=== PATIENT | female | born 1980 | race Caucasian/White ===

== ENCOUNTER 2022-12-12 21:15 | Inpatient (IN) | payer MEDICARE, MEDICAID ==
[~2022-12-12] VITALS: Ht 170.2 cm; Wt 129.0 kg
[2022-12-12] MEDS ORDERED: LIDOCAINE 1% MDV 20ML VIAL INFIL PRN (23:50)
[2022-12-12] MEDS ORDERED: OXYTOCIN DRIP 30 UNITS in IV 1 EA IV PRN (23:50)
[2022-12-13] VITALS (9 sets, daily range): BP systolic 110–139; BP diastolic 54–84; TEMP 97.5; O2SAT 98–100
[2022-12-13] MEDS: miSOPROStol 50MCG 1/2 TABLET SL SCH ×3 (00:15→08:00)
[2022-12-13 00:42] LABS: GLUCOSE,RANDOM 94 MG/DL (LESS THAN 200)
[2022-12-13 00:52] LABS: HEMATOCRIT 39.6 % (36.0-47.0); MEAN CORPUSCULAR HEMOGLOBIN 29.5 pg (27.0-33.0); MEAN CORPUSCULAR HGB CONC 32.8 g/dl (32.0-36.5); MEAN CORPUSCULAR VOLUME 89.8 fl (80.0-96.0); PLATELET COUNT, AUTOMATED 185 10^3/uL (150-450); RED BLOOD COUNT 4.41 10^6/uL (4.00-5.40); WHITE BLOOD COUNT 11.7 10^3/uL (4.0-10.0)
[2022-12-13] MEDS ORDERED: CARBOPROST TROMETHAMINE 250 MCG/ML AMP IM PRN (09:15)
[2022-12-13] MEDS ORDERED: LACTATED RINGER'S 1000 ML IV STA (09:15)
[2022-12-13] MEDS ORDERED: OXYTOCIN DRIP 30 UNITS in IV 1 EA IV PRN ×4 (09:15)
[2022-12-13] MEDS ORDERED: ceFAZolin SOD 3 GM IV Place Holder IV ONE (09:15)
[2022-12-13] MEDS ORDERED: TRANEXAMIC ACID INJection 1,000 MG in NS 100 ML IV PRN (09:15)
[2022-12-13] MEDS ORDERED: BICITRA 30ML SOLN UDC PO ONE (09:15)
[2022-12-13] MEDS ORDERED: METHYLERGONOVINE MALEATE 0.2MG/ML 1ML VIAL IM PRN ×2 (09:15→11:35)
[2022-12-13] MEDS ORDERED: OXYTOCIN INJ 10UNITS/ML 1ML VIAL IM PRN (09:15)
[2022-12-13] MEDS ORDERED: ONDANSETRON 4MG 2ML VIAL As Ordered ONE (09:20)
[2022-12-13] MEDS ORDERED: OXYTOCIN INJ 10UNITS/ML 1ML VIAL As Ordered ONE (09:20)
[2022-12-13] MEDS ORDERED: MORPHINE PRES-FREE INJ 10 MG/10 ML VIAL As Ordered ONE (09:20)
[2022-12-13] MEDS ORDERED: AZITHROMYCIN INJ 500 MG, VIAL MATE ADAPTER 1 EACH in NS 250 ML IV ONE (09:30)
[2022-12-13] MEDS ORDERED: PHENYLephrine 500MCG 5ML (100MCG/ML) SYRINGE As Ordered ONE ×2 (10:12→10:40)
[2022-12-13] MEDS ORDERED: METOCLOPRAMIDE INJ 10MG/2ML VIAL As Ordered ONE (10:18)
[2022-12-13] MEDS ORDERED: ceFAZolin SOD 2 GM in IV 1 EA IV ONE (10:30)
[2022-12-13] MEDS ORDERED: ceFAZolin SOD 1 GM in D5W MINI-BAG PLUS 50 ML IV ONE (10:30)
[2022-12-13] MEDS ORDERED: ePHEDrine SULFATE 25 MG/5 ML(5MG/ML) SYRINGE As Ordered ONE (10:40)
[2022-12-13] MEDS ORDERED: ACETAMINOPHEN 1000MG 100ML IV BAG As Ordered ONE (10:41)
[2022-12-13] MEDS ORDERED: SIMETHICONE 80MG CHEW TAB PO PRN (11:35)
[2022-12-13] MEDS ORDERED: ACETAMINOPHEN TAB 650MG DOSE (2X325MG) PO PRN (11:35)
[2022-12-13] MEDS ORDERED: MORPHINE 4 MG/ML 1ML VIAL IV PRN (11:35)
[2022-12-13] MEDS ORDERED: PERCOCET 5MG/325MG TAB PO PRN (11:35)
[2022-12-13] MEDS ORDERED: ANUSOL HC CREAM 30GM TOP PRN (11:35)
[2022-12-13] MEDS ORDERED: OXYTOCIN DRIP 30 UNITS in IV 1 EA IV SCH (11:35)
[2022-12-13] MEDS ORDERED: ONDANSETRON 4MG 2ML VIAL IV PRN (11:35)
[2022-12-13] MEDS ORDERED: RHOGAM 300MCG (1500IU) INJ IM SCH (11:35)
[2022-12-13] MEDS ORDERED: OXYTOCIN 30UNITS IN 0.9% NaCl 500ML IV BAG As Ordered ONE (11:55)
[2022-12-13] MEDS: UNRESOLVED CLARIFICATION ENTRY XX SCH ×3 (14:00→22:00)
[2022-12-13] MEDS ORDERED: EQL50TAB2 PO (14:10)
[2022-12-13] MEDS ORDERED: FERR325T3 PO (14:16)
[2022-12-13] MEDS ORDERED: B-122500 PO (14:16)
[2022-12-13] MEDS ORDERED: BARI1CAP PO (14:16)
[2022-12-13] MEDS ORDERED: CALC1TAB63 PO (14:16)
[2022-12-13] MEDS ORDERED: PRENTAB9 PO (14:16)
[2022-12-13] MEDS: LR 1,000 ML IV SCH ×2 (14:27→16:34)
[2022-12-13] MEDS: KETOROLAC 30 MG/ML 1ML VIAL IV SCH ×2 (14:33→20:41)
[2022-12-13] MEDS ORDERED: PERCOCET PO (19:08)
[2022-12-13] MEDS ORDERED: COLA100C5 PO (19:08)
[2022-12-13] MEDS: DOCUSATE SODIUM 100MG CAPSULE PO SCH (20:42)
[2022-12-13] MEDS: ENOXAPARIN 40MG/0.4ML SYRINGE (J1650 PER 10MG) SC SCH (20:42)
[2022-12-14] MEDS ORDERED: LR 1,000 ML IV ONE (00:40)
[2022-12-14] MEDS: KETOROLAC 30 MG/ML 1ML VIAL IV SCH ×2 (00:54→06:18)
[2022-12-14] MEDS: LR 1,000 ML IV SCH (01:15)
[2022-12-14] MEDS: UNRESOLVED CLARIFICATION ENTRY XX SCH ×2 (02:00→02:07)
[2022-12-14 06:00] VITALS: BP 109/54; O2SAT 100
[2022-12-14] MEDS: ACETAMINOPHEN 500 MG TAB PO PRN ×3 (06:35→20:42)
[2022-12-14 07:42] LABS: HEMOGLOBIN 10.2 g/dl (12.0-15.5); MEAN CORPUSCULAR HEMOGLOBIN 29.8 pg (27.0-33.0); MEAN CORPUSCULAR HGB CONC 32.9 g/dl (32.0-36.5); MEAN CORPUSCULAR VOLUME 90.6 fl (80.0-96.0); PLATELET COUNT, AUTOMATED 147 10^3/uL (150-450); RED BLOOD COUNT 3.42 10^6/uL (4.00-5.40); WHITE BLOOD COUNT 15.2 10^3/uL (4.0-10.0)
[2022-12-14] MEDS: PRENATAL VITAMINS CHEWABLE TABLET PO SCH (08:35)
[2022-12-14] MEDS: DOCUSATE SODIUM 100MG CAPSULE PO SCH ×2 (08:35→20:41)
[2022-12-14] MEDS: ENOXAPARIN 40MG/0.4ML SYRINGE (J1650 PER 10MG) SC SCH ×2 (09:22→20:41)
[2022-12-14 10:00] VITALS: BP 126/60; O2SAT 86
[2022-12-14 14:00] VITALS: BP 136/68; O2SAT 100
[2022-12-14] MEDS: PERCOCET 5MG/325MG TAB PO PRN (17:30)
[2022-12-14 18:00] VITALS: BP 133/63; O2SAT 99
[2022-12-14 22:00] VITALS: BP 133/68
[2022-12-15] MEDS: PERCOCET 5MG/325MG TAB PO PRN (00:58)
[2022-12-15 02:00] VITALS: BP 148/70; O2SAT 97
[2022-12-15 06:00] VITALS: BP 141/71
[2022-12-15] MEDS: DOCUSATE SODIUM 100MG CAPSULE PO SCH (08:32)
[2022-12-15] MEDS: PRENATAL VITAMINS CHEWABLE TABLET PO SCH (08:32)
[2022-12-15] MEDS: ENOXAPARIN 40MG/0.4ML SYRINGE (J1650 PER 10MG) SC SCH (08:33)
[2022-12-15] MEDS ORDERED: MEASLES,MUMPS,RUBELLA VACCINE INJ (MMR-II) SC.IMMUN ONE (09:00)
[2022-12-15 10:00] VITALS: O2SAT 98
[2022-12-15 10:20] VITALS: BP 138/76; O2SAT 98
[2022-12-15 14:00] VITALS: BP 140/65; O2SAT 99
== END 2022-12-15 15:20 | disposition home or self-care (01) | DRG 783 ==
LOC: M LDO 21:15 → M LDI 23:13 → M OBS 12-13 13:10
PROVIDERS: ADMIT Specialist; ATTEND Advanced Practice Midwife
PROC: 3E0P7GC Introduction of Other Therapeutic Substance into Female Reproductive, Via Natural or Artificial Opening (ICD-10-PCS; 2022-12-12)
PROC: 0UB70ZZ Excision of Bilateral Fallopian Tubes, Open Approach (ICD-10-PCS; 2022-12-13)
PROC: 10D00Z1 Extraction of Products of Conception, Low, Open Approach (ICD-10-PCS; principal; 2022-12-13 09:40)
DX: O36.63X0 Maternal care for excessive fetal growth, third trimester, not applicable or unspecified (principal); O24.12 Pre-existing type 2 diabetes mellitus, in childbirth; Z3A.39 39 weeks gestation of pregnancy; O99.214 Obesity complicating childbirth; E66.9 Obesity, unspecified; O99.844 Bariatric surgery status complicating childbirth; Z91.030 Bee allergy status; Z88.5 Allergy status to narcotic agent; Z88.1 Allergy status to other antibiotic agents; Z88.0 Allergy status to penicillin; Z88.6 Allergy status to analgesic agent; Z88.8 Allergy status to other drugs, medicaments and biological substances; Z79.4 Long term (current) use of insulin; Z37.0 Single live birth; Z30.2 Encounter for sterilization